=== PATIENT | female | born 1965 | race Two or more races ===

== ENCOUNTER 2019-06-08 17:01 | Emergency (ER) | payer OTHER ==
--- NOTE | 2019-06-08 17:12 | PDOC ---
Attending Attestation - Resident Resident Name: Srikanth Fischer - ED Attending Attestation I have performed the following: I have examined & evaluated the patient, The case was reviewed & discussed with the resident, I agree w/resident's findings & plan, Exceptions are as noted - HPI HPI: 06/08/19 17:51 Epigastric pain since yesterday. Long history of dyspepsia/GERD usually relieved by omeprazole. Similar pain, but more severe this time, and not relieved with medication. Denies nausea, vomiting, diarrhea, hematemesis, melena, bloody stool. Intake of food and fluids is not affected, although the pain is slightly increased with eating. - Physicial Exam PE: 06/08/19 17:52 Abdominal exam is entirely benign. No distention. Bowel sounds normal. Soft without mass tenderness or organomegaly. Specifically, vigorous palpation in the epigastrium, right and left upper quadrants, results and no discernible discomfort, guarding, or rebound. - Medical Decision Making 06/08/19 17:53 Assessment: Dyspepsia, gastritis/early peptic ulcer disease, or acute gastroenteritis superimposed on chronic gastritis Plan: Labs, symptomatic treatment, and further evaluation. 06/08/19 19:31 Labs without significant abnormalities. Patient improved with Pepcid and antacid. Pain is resolved. Abdomen remains soft and nontender. Daughter is advised to follow-up with safety intern. Further testing will be needed to make sure there is no serious problem with the lining of the stomach. She seems to understand and agrees. No distress at discharge.
[2019-06-08 17:18] VITALS: BP 107/81; PULSE 74; TEMP 97.7; BMI 26.6
[2019-06-08] MEDS ORDERED: MAG HYDROX/AL HYDROX/SIMETH -MYLANTA- ORAL SUSPENSION PO ONE (17:37)
[2019-06-08] MEDS ORDERED: SODIUM CHLORIDE 1,000 ML IV STA (17:37)
[2019-06-08] MEDS ORDERED: FAMOTIDINE 20 MG/50 ML IVPB 20 MG/50 ML MG IVPB ONE ×2 (17:37→18:05)
--- NOTE | 2019-06-08 17:43 | PDOC ---
History of Present Illness - History of Present Illness Initial Comments: 06/08/19 17:38 53 yo F PMH NIDDM, intermittent chest pain treated with naproxen, GERD, presenting with epigastric pain for the past 2 days. Feels similar in quality to prior reflux episodes, but more severe, slightly worsened by eating food. Denies CP, SOB, constipation/diarrhea, fevers/chills, MENDEZ, N/V. <Srikanth Fischer - Last Filed: 06/08/19 17:48> <Hardeep Brizuela - Last Filed: 06/08/19 19:30> - General Chief Complaint: Pain Stated Complaint: ABDOMINAL PAIN FOR 2 DAYS Time Seen by Provider: 06/08/19 17:11 Past History - Past Medical History COPD: No Diabetes: Yes GI Disorders: Yes (GERD) - Psycho Social/Smoking Cessation Hx Smoking History: Never smoked Information on smoking cessation initiated: No Hx Alcohol Use: No Drug/Substance Use Hx: No <Srikanth Fischer - Last Filed: 06/08/19 17:48> <Hardeep Brizuela - Last Filed: 06/08/19 19:30> - Past Medical History Allergies/Adverse Reactions: Allergies Allergy/AdvReac Type Severity Reaction Status Date / Time No Known Allergies Allergy Unverified 06/08/19 17:04 Home Medications: Ambulatory Orders Glyburide 5 mg PO DAILY 06/08/19 Pantoprazole Sodium [Protonix] 40 mg PO DAILY #14 tablet. 06/08/19 Review of Systems - Review of Systems Constitutional: No: Chills, Diaphoresis, Fever HEENTM: No: Recent change in vision, Hearing Loss, Difficulty Swallowing Respiratory: No: Cough, Orthopnea, Shortness of Breath Cardiac (ROS): No: Chest Pain ABD/GI: No: Constipated, Diarrhea, Nausea, Vomiting : No: Burning, Dysuria, Discharge, Frequency, Flank Pain, Hematuria Musculoskeletal: No: Back Pain, Muscle Pain Neurological: No: Headache, Numbness, Tingling, Weakness <Srikanth Fischer - Last Filed: 06/08/19 17:48> *Physical Exam - Vital Signs Last Vital Signs Temp Pulse Resp BP Pulse Ox 97.7 F 74 18 107/81 97 06/08/19 17:04 06/08/19 17:04 06/08/19 17:04 06/08/19 17:04 06/08/19 17:04 - Physical Exam Comments: 06/08/19 17:51 Gen: well-developed, well-nourished, NAD Neuro: AAOX4, CN II-XII intact, FTN intact, EOMI, PERRLA, 5/5 strength, SILT HEENT: atraumatic, normocephalic, dry mucous membranes Neck: trachea midline, supple CV: regular rate, regular rhythm, no murmurs, rubs, or gallops Pulm: CTA b/l, no wheezing Abd: soft, non-distended, mild ttp in epigastric area MSK: full ROM, intact pulses Extr: no edema, no deformities Skin: warm, dry <Srikanth Fischer - Last Filed: 06/08/19 17:48> - Vital Signs Last Vital Signs Temp Pulse Resp BP Pulse Ox 97.7 F 74 18 107/81 97 06/08/19 17:04 06/08/19 17:04 06/08/19 17:04 06/08/19 17:04 06/08/19 17:04 <Hardeep Brizuela - Last Filed: 06/08/19 19:30> ED Treatment Course - LABORATORY CBC & Chemistry Diagram: 06/08/19 18:02 06/08/19 18:02 - ADDITIONAL ORDERS Additional order review: Laboratory Results 06/08/19 06/08/19 18:02 18:02 Sodium 140 Potassium 3.8 Chloride 104 Carbon Dioxide 27 Anion Gap 9 BUN 19.0 H Creatinine 0.6 Est GFR (CKD-EPI)AfAm 119.77 Est GFR (CKD-EPI)NonAf 103.34 Random Glucose 91 Calcium 8.9 Total Bilirubin 0.4 AST 20 ALT 24 Alkaline Phosphatase 65 Total Protein 7.0 Albumin 3.6 Lipase 118 06/08/19 18:02 RBC 5.05 MCV 82.1 MCHC 32.0 RDW 13.4 MPV 9.0 Neutrophils % 54.6 Lymphocytes % 37.9 Monocytes % 5.8 Eosinophils % 1.4 Basophils % 0.3 - Medications Given in the ED: ED Medications Discontinued Medications Generic Name Dose Route Start Last Admin Trade Name Freq PRN Reason Stop Dose Admin Al Hydroxide/Mg Hydroxide 30 ml 06/08/19 17:37 06/08/19 18:07 Mylanta Suspension - PO 06/08/19 17:38 30 ml ONCE ONE Administration Famotidine/Sodium Chloride 20 mg in 50 mls @ 100 mls/hr 06/08/19 17:37 18:27 Pepcid 20 Mg Premixed Ivpb - IVPB 06/08/19 18:06 100 mls/hr ONCE ONE Administration Sodium Chloride 1,000 mls @ 1,000 mls/hr 06/08/19 17:37 06/08/19 18:24 Normal Saline - IV 06/08/19 18:36 1,000 mls/hr ASDIR STA Administration <Hardeep Brizuela - Last Filed: 06/08/19 19:30> Medical Decision Making - Medical Decision Making 06/08/19 17:52 Difff includes GERD v gastritis v PUD v pancreatitis. - CBC, CMP, lipase - 1L NS, Maalox, Pepcid <Srikanth Fischer - Last Filed: 06/08/19 17:48> Discharge <Srikanth Fischer - Last Filed: 06/08/19 17:48> - Discharge Information Problems reviewed: Yes - Admission No <Hardeep Brizuela - Last Filed: 06/08/19 19:30> - Discharge Information Clinical Impression/Diagnosis: Gastritis Qualifiers: Gastritis type: unspecified gastritis Chronicity: acute Gastritis bleeding: without bleeding Qualified Code(s): K29.00 - Acute gastritis without bleeding Condition: Stable Disposition: HOME - Additional Discharge Information Prescriptions: Pantoprazole Sodium [Protonix] 40 mg PO DAILY #14 tablet.dr - Follow up/Referral Referrals: Luis Mandujano MD [Staff Physician] - 1 week - Patient Discharge Instructions Additional Instructions: Avoid meat and dairy products Medication as directed See automatic paint sprayer operator for further evaluation and treatment. He will need further testing to visualize the inside lining of the stomach to make sure there is no serious medical condition. - Post Discharge Activity
[2019-06-08] MEDS ORDERED: MAG HYDROX/AL HYDROX/SIMETH 30 ML UNIT-DOSE CUP ONE (18:05)
[2019-06-08 18:16] LABS: BASO % 0.3 % (0-2.0); EOS % 1.4 % (0-4.5); HEMATOCRIT 41.5 % (32.4-45.2); HEMOGLOBIN 13.3 GM/dl (10.7-15.3); LYMPH % 37.9 % (8-40); MCH 26.3 pg (25.7-33.7); MEAN CELL VOLUME 82.1 fl (80-96); MONO % 5.8 % (3.8-10.2); NEUT % 54.6 % (42.8-82.8); PLATELET COUNT 227 K/MM3 (134-434); RBC 5.05 M/mm3 (3.60-5.2); RDW 13.4 % (11.6-15.6); WHITE BLOOD COUNT 7.6 K/mm3 (4.0-10.8)
[2019-06-08 18:32] LABS: ALBUMIN 3.6 g/dl (3.4-5.0); BILIRUBIN,TOTAL 0.4 mg/dl (0.2-1); CALCIUM 8.9 mg/dl (8.5-10); CREATININE 0.6 mg/dl (0.55-1.3); POTASSIUM 3.8 mmol/L (3.5-5.1)
== END 2019-06-08 19:45 | disposition home or self-care (01) ==
LOC: FER 17:01
PROC: 3E033GC Introduction of Other Therapeutic Substance into Peripheral Vein, Percutaneous Approach (ICD-10-PCS; principal; 2019-06-08)
PROC: 3E0337Z Introduction of Electrolytic and Water Balance Substance into Peripheral Vein, Percutaneous Approach (ICD-10-PCS; 2019-06-08)
DX: K29.00 Acute gastritis without bleeding (principal); E11.9 Type 2 diabetes mellitus without complications
CPT/HCPCS: 36415; 80053; 83690; 85025; 96361; 96365; 99283-25; J7030